=== PATIENT | female | born 1955 | race Caucasian/White ===

== ENCOUNTER 2016-07-21 17:31 | Emergency (ER) | payer OTHER ==
[~2016-07-21] VITALS: Ht 160 cm; Wt 67.1 kg
[~2016-07-21 17:31] MED LIST: AMLODIPINE BESYL5 M1 PO; ATORVASTATIN CA40 M1 PO; BUPROPION XL300 M1 PO; CHANTIX1 EACH PO; CYCLOBENZAPRINE10 M1 PO; FLEXERIL10 MG PO; HYDROCHLOROTH12.5 M2 PO; PERCOCET 325 MG1 TA2 PO; PERCOCET 5-3251 EACH PO; TYLENOL WITH C1 EACH PO
--- NOTE | 2016-07-21 18:45 | ED GENERAL ADULT ---
History of Present Illness General Chief Complaint: Shoulder Injury Stated Complaint: L SHOULDER PAIN S/P FALL 5 DAYS AGO Source: patient Exam Limitations: no limitations Vital Signs & Intake/Output Vital Signs & Intake/Output Vital Signs Date Time Temp Pulse Resp B/P B/P Pulse O2 O2 Flow FiO2 Mean Ox Delivery Rate 07/21 1938 78 20 139/78 99 07/21 1934 Room Air 07/21 1739 97.8 68 18 135/88 96 Room Air Allergies Coded Allergies: naproxen (From NAPROSYN) (ANAPHYLAXIS 06/16/15) Reconcile Medications Amlodipine Besylate 5 MG TABLET 1 TAB PO DAILY BP (Reported) Atorvastatin Calcium 40 MG TABLET 1 TAB PO DAILY CHOLESTEROL (Reported) Bupropion HCl (Bupropion XL) 300 MG TAB.ER.24H 1 TAB PO QAM MENTAL HEALTH ( Reported) Cholecalciferol (Vitamin D3) (Vitamin D3) (Unknown Strength) CAPSULE (Unknown Dose) PO DAILY SUPPLEMENT (Reported) Escitalopram Oxalate 10 MG TABLET 1 TAB PO DAILY MENTAL HEALTH (Reported) Hydrochlorothiazide 12.5 MG TABLET 1 TAB PO DAILY WATER PILL (Reported) Oxycodone HCl/Acetaminophen (Percocet 5-325 MG Tablet) 5 MG-325 MG TABLET 1 TAB PO BID PRN PAIN Triage Note: PT STATES SHE HURT HER LEFT SHOULDER WHEN SHE FELL ON IT THURSDAY. PT STATES SHE CAN MOVE IT BUT SHE DOESN'T THINK ITS BROKEN Triage Nurses Notes Reviewed? yes Onset: Abrupt Duration: day(s): Timing: recent history HPI: 07/21/16 7:20 PM LEFT SHOULDER PAIN S/P FALL THURSDAY This is a 61-year-old female who presents to the emergency department status post fall onto the left shoulder. She tripped over her cat. Striking her left shoulder on the ground. Since then she's had ongoing left shoulder pain. The pain radiates to her left scapula and into the neck. However the pain is slowly coming from the left shoulder. She has free range of motion of the neck. The left shoulder anteriorly is tender. There is no obvious deformity. The onset of the symptoms were abrupt. The duration has been several days. The severity is significant as her symptoms required her to come to the emergency department for care. She has associated left shoulder pain decreased range of motion. Past History Travel History Traveled to [place] past 21 day No Medical History Any Pertinent Medical History? 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 No Review of Systems Review of Systems Constitutional: Denies: fever. EENTM: Denies: visual changes. Respiratory: Denies: short of breath. Cardiovascular: Denies: chest pain. GI: Denies: abdominal pain. Genitourinary: Reports: no symptoms. Musculoskeletal: Reports: see HPI. Skin: Denies: rash. Neurological/Psychological: Denies: headache. Hematologic/Endocrine: Reports: no symptoms. Physical Exam Physical Exam General Appearance: alert, awake, anxious, mild distress Head: atraumatic, normal appearance Eyes: Bilateral: normal appearance, PERRL, EOMI. Ears, Nose, Throat: normal pharynx, normal ENT inspection Neck: normal inspection, supple, no midline tenderness, nexus criteria negative Respiratory: normal breath sounds, chest non-tender, no respiratory distress Cardiovascular: regular rate/rhythm Peripheral Pulses: 4+ radial (R), 4+ radial (L) Gastrointestinal: non-tender Back: normal range of motion Extremities: tenderness, left anterior shoulder Neurologic/Psych: no motor/sensory deficits, awake, alert, oriented x 3, normal gait Skin: intact, normal color, warm/dry Comments: She has pain to the left anterior shoulder, decreased range of motion left shoulder, left axillary, radial median and ulnar nerve function is intact to the left arm. There is no bony deformity. The patient was placed in a left shoulder sling, she was given by mouth Percocet. She says she has anaphylaxis from Naprosyn. She does take Motrin however. Core Measures ACS in differential dx? No CVA/TIA Diagnosis: No Severe Sepsis Present: No Septic Shock Present: No Progress Differential Diagnoses I considered the following diagnoses in my evaluation of the patient: [Fracture, dislocation, sprain, contusion, rotator cuff injury] Plan of Care: Orders Procedure Date/time Status Durable Medical Equipment 07/21 1926 Active Initial ED EKG: none Departure Departure Disposition: HOME OR SELF CARE Condition: Stable Clinical Impression Primary Impression: Sprain of left shoulder Secondary Impressions: Contusion of left shoulder or upper extremity, Rotator cuff injury Referrals: JOSSELINE LUNA,LUPE Agustin (PCP/Family) Departure Forms: Customer Survey General Discharge Information Prescriptions: Current Visit Scripts Oxycodone HCl/Acetaminophen (Percocet 5-325 MG Tablet) 1 TAB PO BID PRN PAIN #10 TAB Comments X-ray of the left shoulder PATIENT: NAYLA CHANG PRESENT AGE: 61 PATIENT ACCOUNT NO: [id number] : 59 LOCATION: ER ORDERING PHYSICIAN: DARIO GLOVER SERVICE DATE: 07/21/16 EXAM TYPE: RAD - XRY-SHOULDER COMPLETE-LEFT EXAMINATION: XR SHOULDER, LEFT CLINICAL INFORMATION: Fall, rule out fracture COMPARISON: None TECHNIQUE: Three views of the left shoulder. FINDINGS: Negative for acute fracture or dislocation. IMPRESSION: No acute fracture or dislocation left shoulder. DICTATED BY: ENRIKE FINN MD DATE/TIME DICTATED:07/21/161847 ANODE ADJUSTER:ES DATE/TIME TRANSCRIBED:07/21/161847 CONFIDENTIAL, DO NOT COPY WITHOUT APPROPRIATE AUTHORIZATION. <Electronically signed in Other Vendor System> SIGNED BY: ENRIKE FINN MD 07/21/16 449 Critical Care Note Critical Care Note Critical Care Time: non-applicable
[2016-07-21] MEDS ORDERED: VITAMIN D31000 UNI1 PO (18:50)
[2016-07-21] MEDS ORDERED: ESCITALOPRAM OX10 MG PO (18:51)
--- NOTE | 2016-07-21 18:52 | RADIOLOGY REPORT ---
EXAMINATION: XR SHOULDER, LEFT CLINICAL INFORMATION: Fall, rule out fracture COMPARISON: None TECHNIQUE: Three views of the left shoulder. FINDINGS: Negative for acute fracture or dislocation. IMPRESSION: No acute fracture or dislocation left shoulder.
[2016-07-21] MEDS ORDERED: PERCOCET 5-3251 EACH PO (19:25)
[2016-07-21 19:39] VITALS: BP 139/78
== END 2016-07-21 19:39 ==
LOC: ERH 17:31
DX: S43.402A Unspecified sprain of left shoulder joint, initial encounter (principal); S40.012A Contusion of left shoulder, initial encounter; S46.002A Unspecified injury of muscle(s) and tendon(s) of the rotator cuff of left shoulder, initial encounter; W01.0XXA Fall on same level from slipping, tripping and stumbling without subsequent striking against object, initial encounter; Y92.9 Unspecified place or not applicable; Y93.9 Activity, unspecified
CPT/HCPCS: 73030-LT